=== PATIENT | female | born 1985 | race Hispanic/Latino ===

== ENCOUNTER 2018-08-28 16:19 | Emergency (ER) | payer SELFPAY ==
[2018-08-28 17:04] LABS: #Lymphocytes 0.8 thou/uL (1.20-3.40); #Monocytes 0.4 thou/uL (0.11-0.59); #Neutrophils 2.7 thou/uL (1.40-6.50); %Basophils 0.4 % (0.0-1.0); %Eosinophils 1.1 % (0.0-10.0); %Lymphocytes 20.8 % (21.0-51.0); %Monocytes 10.8 % (0.0-10.0); %Neutrophils 66.8 % (42.0-75.0); Mean Corpuscular HGB CONC 33.1 g/dL (32.0-36.0); Mean Corpuscular Volume 84.6 fL (78.0-98.0); Mean Platelet Volume 6.5 fL (7.4-10.4); Platelet Count 260 thou/uL (130-400); RBC Distribution Width 11.4 % (11.5-14.5); Red Blood Cell (RBC) Count 4.64 mill/uL (4.20-5.40)
[2018-08-28 17:23] LABS: ALT (SGPT) 115 U/L (8-55); AST (SGOT) 84 U/L (5-34); Albumin 4.3 g/dL (3.5-5.0); Alkaline Phosphatase 72 U/L (40-150); Anion Gap 10 mmol/L (10-20); BUN (Urea Nitrogen) 13 mg/dL (7.0-18.7); Bilirubin, Total 0.4 mg/dL (0.2-1.2); Calc. Creatinine Clearance 0 mL/min (70-130); Calcium 9.7 mg/dL (7.8-10.44); Carbon Dioxide 24 mmol/L (22-29); Chloride 105 mmol/L (98-107); Estimated GFR-MDRD Greater than 90; Globulin 3.8 g/dL (2.4-3.5); Glucose 99 mg/dL (70-105); Potassium 4.1 mmol/L (3.5-5.1); Protein, Total 8.1 g/dL (6.0-8.3); Sodium 135 mmol/L (136-145)
[2018-08-28] MEDS ORDERED: Ketorolac Tromethamine 60 MG/2 ML VIAL ONE (17:31)
[2018-08-28 17:36] LABS: Bilirubin Negative (Negative); Blood, Urine Negative (Negative); Clarity CLEAR (Clear); Glucose, Urine (Dipstick) Negative (Negative); Leukocyte Negative (Negative); Nitrite Negative (Negative); Protein, Urine (Dipstick) Negative (Neg-Trace); Specific Gravity, Urine 1.005 (1.002-1.036); Urobilinogen 0.2 mg/dL (0.2-1.0); pH, Urine 6.5 (5.0-9.0)
--- NOTE | 2018-08-28 17:39 | ULT ---
ULTRASOUND RETROPERITONEUM COMPLETE: (RENAL) 08/28/18 HISTORY: 33-year-old female with bilateral flank pain, left greater than right. FINDINGS: There is no hydronephrosis. Right kidney measures 10 x 5 x 5.5 cm. Left kidney measures 11 x 6.5 x 6 cm. Postvoid urinary bladder volume is 45 mL. Bladder has a grossly normal appearance. Bilateral ureteral jets are demonstrated. IMPRESSION: 1. Incomplete voiding, with postvoid residua of 45 mL. 2. No hydronephrosis. LISA Brody POS: JIN
[2018-08-28 17:43] LABS: Pregnancy Test - Urine (BHCG) Negative (Negative); Pregu Control Background? CLEAR/WHITE (CLR/WHITE); Pregu Control Bar Appear? YES (CONTROL BAR); Specific Gravity 1.005 (1.002-1.036)
[2018-08-28 18:39] LABS: HBCM Index 0.09 S/CO (0-0.79); HBSAg Index 0.33 S/CO (0-0.99); Hep A IgM AB Non-Reactive (NonReactive); Hep A IgM S/CO 0.25 S/CO (0-0.79); Hep B Surf Ag Non-Reactive S/CO (NonReactive); Hep C IgG Ab Non-Reactive (NonReactive); Hep C Index 0.06 S/CO (0-0.79); Hepatitis B Core IgM Abs Non-Reactive (NonReactive)
--- NOTE | 2018-08-28 18:44 | ULT ---
RIGHT UPPER QUADRANT ULTRASOUND 09/07/18 INDICATION: Increased liver enzymes. COMPARISON: Renal ultrasound dated 08/28/18. FINDINGS: The pancreas is obscured. No focal hepatic lesion is evident. Gallbladder is normal appearing. No son ographic Hernandez's sign is reported. Common bile duct measures 3.7 mm. The right kidney was evaluated on a previously performed renal ultrasound performed at 5:12 p.m. on 08/28/18. IMPRESSION: No acute sonographic abnormality. POS: JORDIN
== END 2018-08-28 20:20 | disposition home or self-care (01) ==
LOC: ERS 16:19
DX: R10.11 Right upper quadrant pain (principal); M54.9 Dorsalgia, unspecified
CPT/HCPCS: 36415; 76705; 76770; 80053; 80074; 81003; 81025; 83690; 85025; 96372; J1885

== ENCOUNTER 2018-12-25 17:59 | Inpatient (IN) | payer SELFPAY ==
[2018-12-25] MEDS ORDERED: Morphine 4 MG/ML VIAL ONE (18:36)
[2018-12-25] MEDS ORDERED: Ketorolac Tromethamine 30 MG/ML VIAL ONE (18:36)
[2018-12-25 19:00] LABS: Hemoglobin 15.4 g/dL (12.0-16.0); Mean Corpuscular HGB CONC 32.9 g/dL (32.0-36.0); Mean Corpuscular Hemoglobin 27.9 pg (27.0-31.0); Mean Corpuscular Volume 84.8 fL (78.0-98.0); Mean Platelet Volume 7.4 fL (7.4-10.4); Platelet Count 175 thou/uL (130-400); RBC Distribution Width 12.8 % (11.5-14.5); Red Blood Cell (RBC) Count 5.53 mill/uL (4.20-5.40); White Blood Cell (WBC) Count 17.9 thou/uL (4.8-10.8)
[2018-12-25 19:20] LABS: Band 58 % (5-11); Lymphocytes 3 % (21-51); MDiff Complete? YES; Metamyelocyte 1 % (0-0); Monocytes 1 % (0-10); Neutrophil 37 % (42-75); Platelet Morphology Comment Appears Adequate
[2018-12-25 19:25] LABS: ALT (SGPT) 644 U/L (8-55); AST (SGOT) 835 U/L (5-34); Albumin 3.2 g/dL (3.5-5.0); Alkaline Phosphatase 198 U/L (40-150); Anion Gap 20 mmol/L (10-20); BUN (Urea Nitrogen) 34 mg/dL (7.0-18.7); Bilirubin, Total 3.1 mg/dL (0.2-1.2); Calc. Creatinine Clearance 0 mL/min (70-130); Calcium 8.5 mg/dL (7.8-10.44); Carbon Dioxide 18 mmol/L (22-29); Chloride 98 mmol/L (98-107); Estimated GFR-MDRD 63; Glucose 192 mg/dL (70-105); Magnesium 2.1 mg/dL (1.6-2.6); Potassium 5.7 mmol/L (3.5-5.1); Protein, Total 7.2 g/dL (6.0-8.3); Sodium 130 mmol/L (136-145)
[2018-12-25 19:29] LABS: Acetaminophen Less than 6.0 mcg/mL (10.0-30.0); Alcohol Less than 10 mg/dL (Less than 10); CK (CPK) 74 U/L (29-168); Salicylate Less than 8.0 mg/dL (15.0-30.0)
--- NOTE | 2018-12-25 19:29 | CT ---
CT ANGIOGRAM THORAX WITH CONTRAST CT ANGIOGRAM ABDOMEN WITH CONTRAST: HISTORY: 33-year-old female with sudden onset of severe chest and abdominal pain and back pain, and weakness. Rule out aortic dissection. TECHNIQUE: IV injection of iodinated contrast. Arterial bolus chasing technique. Scan acquisition from top of aortic arch to iliac crests. Pelvis was not included. 3-D MIP reconstructions. FINDINGS: There is no thoracic aneurysm, dissection, or calcified atherosclerotic plaque. No stenosis. Bilatera l common iliac arteries, bilateral single renal arteries, celiac artery, and superior mesenteric artery, are also normal. Diffuse mild large regions of groundglass opacities throughout the bilateral lower lobes. No consolidation, pneumothorax, or pleural effusion. No mediastinal lymphadenopathy. Mild thickening of bilateral hilar soft tissues, nonspecific. Large number of mildly enlarged bilater al axillary and subpectoral lymph nodes. No pericardial effusion. No hydronephrosis. Within the limitations of an arterial phase only scan, no obvious gross abnormality is identified involving the adrenals, pancreas, liver, or spleen. No hydronephrosis bilaterally. Small focal defect at the lateral aspect of the right renal mid pole cortex, perhaps representing scar from prior insults. No e patrice in the perirenal spaces bilaterally. No acute findings of the visualized upper portions of the colon. Normal appendix. No small bowel dilation. No evidence of pneumoperitoneum or ascites within th e upper abdominal cavity. IMPRESSION: 1) normal aorta. 2) diffuse groundglass densities throughout the bilateral lower lobes. Uncertain whether this represe nts noncardiogenic pulmonary interstitial edema. 3) bilateral axillary lymphadenopathy. 4) evidence of small old cortical insult in the right kidney.
[2018-12-25 19:44] LABS: CKMB 1.5 ng/mL (0-6.6)
--- NOTE | 2018-12-25 19:44 | RAD ---
Exam: Chest one view HISTORY:Sepsis. Diaphoretic patient. Pain. Weakness. Comparison: None FINDINGS: Cardiac silhouette: Normal Pulmonary vessels: Normal Costophrenic angles: Clear LUNGS: No masses or consolidation. Scattered interstitial opacities. Pneumothorax: None Osseous abnormalities: None IMPRESSION: 1. Scattered interstitial opacities. Correlate for edema or infiltrate.
[2018-12-25 20:55] LABS: Bilirubin Negative (Negative); Blood, Urine Negative (Negative); Clarity Clear (Clear); Glucose, Urine (Dipstick) Normal (Negative); Leukocyte Negative Leu/uL (Negative); Nitrite Negative (Negative); Protein, Urine (Dipstick) 20 mg/dL (Neg-Trace); Urobilinogen 3 mg/dL (Less than 2)
[2018-12-25 21:00] LABS: Actual Bicarbonate (HCO3a) 18.5 mEq/L (22-28); Base Excess (BEa) -5.5 mEq/L (-2.0 to +3.0); CO2 Tension 32.1 mmHg (35.0-45.0); Carboxyhemoglobin (COHb) 0.6 gm% (0.0-3.0); Hemoglobin (Hb) 14.9 g/dL (12.0-16.0); O2 Tension (PaO2) 90.7 mmHg (80.0-100.0); pH, Arterial 7.38 (7.35-7.45)
[2018-12-25 21:01] LABS: Analyzer IN Cardio ER; Potassium - ABG Lab 4.14 mmol/L (3.70-5.30); Puncture Site RRA
[2018-12-25 21:08] LABS: Amphetamine Not Detected (NotDetected); Barbiturates Screen Not Detected (NotDetected); Benzodiazepine Screen Not Detected (NotDetected); Cocaine Metabolite Screen Not Detected (NotDetected); Medtox Control Line Valid? VALID (VALID); Medtox Reader # READER 1; Methadone Not Detected (NotDetected); Methamphetamine Not Detected (NotDetected); Opiate Screen Detected (NotDetected); Oxycodone Screen Not Detected (NotDetected); Phencyclidine (PCP) Not Detected (NotDetected); THC/Cannabinoid Screen Not Detected (NotDetected); Tricyclic Screen Not Detected (NotDetected)
[2018-12-25] MEDS ORDERED: Piperacillin/Tazobactam 4.5 GM VIAL ONE (21:17)
--- NOTE | 2018-12-25 21:43 | ULT ---
EXAM: US Gallbladder RUQ CLINICAL HISTORY: Elevated LFTs.. COMPARISON: 08/28/2018 FINDINGS: Pancreas: The head and proximal body have a normal echotexture. Liver:Appropriate parenchymal echotexture. No hepatic masses or intrahepatic biliary dilatation. The contour of the hepatic margin is maintained. Gallbladder: No sonographic evidence of cholelithiasis, gallbladder wall thickening or pericholecysti c fluid. Hernandez's sign:Negative Bile ducts: Common bile duct diameter 0.3 cm Right kidney: No hydronephrosis. Right kidney measures 11 cm cm in length. IMPRESSION: Unremarkable exam.
[2018-12-25 23:13] LABS: Lactic Acid 2.6 mmol/L (0.5-2.2)
[2018-12-25 23:22] LABS: Anion Gap 16 mmol/L (10-20); BUN (Urea Nitrogen) 28 mg/dL (7.0-18.7); Calc. Creatinine Clearance 0 mL/min (70-130); Calcium 7.5 mg/dL (7.8-10.44); Carbon Dioxide 20 mmol/L (22-29); Chloride 101 mmol/L (98-107); Estimated GFR-MDRD 82; Glucose 170 mg/dL (70-105); Potassium 4.6 mmol/L (3.5-5.1); Sodium 132 mmol/L (136-145)
[2018-12-25 23:39] LABS: HBCM Index 0.07 S/CO (0-0.79); HBSAg Index 0.27 S/CO (0-0.99); Hep A IgM AB Non-Reactive (NonReactive); Hep A IgM S/CO 0.35 S/CO (0-0.79); Hep B Surf Ag Non-Reactive S/CO (NonReactive); Hep C IgG Ab Non-Reactive (NonReactive); Hep C Index 0.06 S/CO (0-0.79); Hepatitis B Core IgM Abs Non-Reactive (NonReactive)
[2018-12-26] MEDS: Vancomycin HCl 1 GM in Premix Bag 1 BAG IVPB SCH ×3 (05:24→23:08)
[2018-12-26] MEDS ORDERED: traMADol HCl 50 MG TAB PO SCH (05:45)
[2018-12-26 06:53] LABS: ALT (SGPT) 575 U/L (8-55); AST (SGOT) 497 U/L (5-34); Albumin 2.7 g/dL (3.5-5.0); Alkaline Phosphatase 153 U/L (40-150); Anion Gap 12 mmol/L (10-20); BUN (Urea Nitrogen) 27 mg/dL (7.0-18.7); Bilirubin, Total 2.9 mg/dL (0.2-1.2); Calc. Creatinine Clearance 191 mL/min (70-130); Calcium 7.4 mg/dL (7.8-10.44); Carbon Dioxide 23 mmol/L (22-29); Chloride 100 mmol/L (98-107); Estimated GFR-MDRD Greater than 90; Globulin 3.1 g/dL (2.4-3.5); Glucose 121 mg/dL (70-105); Lipase 9 U/L (8-78); Potassium 4.6 mmol/L (3.5-5.1); Protein, Total 5.8 g/dL (6.0-8.3); Sodium 130 mmol/L (136-145)
[2018-12-26 08:06] LABS: #Basophils 0.1 thou/uL (0.0-0.2); #Lymphocytes 0.4 thou/uL (1.20-3.40); #Monocytes 0.2 thou/uL (0.11-0.59); #Neutrophils 9.8 thou/uL (1.40-6.50); %Basophils 0.8 % (0.0-1.0); %Eosinophils 0.4 % (0.0-10.0); %Lymphocytes 3.5 % (21.0-51.0); %Monocytes 1.5 % (0.0-10.0); %Neutrophils 93.7 % (42.0-75.0); Hemoglobin 14.7 g/dL (12.0-16.0); Mean Corpuscular HGB CONC 33.7 g/dL (32.0-36.0); Mean Corpuscular Hemoglobin 28.9 pg (27.0-31.0); Mean Corpuscular Volume 85.8 fL (78.0-98.0); Mean Platelet Volume 7.1 fL (7.4-10.4); Platelet Count 113 thou/uL (130-400); Platelet Morphology Comment Appears Decreased; RBC Distribution Width 12.8 % (11.5-14.5); White Blood Cell (WBC) Count 10.5 thou/uL (4.8-10.8)
[2018-12-26 08:09] LABS: MDiff Complete? YES
[2018-12-26] MEDS ORDERED: Acetaminophen 500 MG TAB PO SCH (08:45)
[2018-12-26] MEDS ORDERED: Sodium Chloride 0.9% 500 ML IVPB SCH (08:45)
[2018-12-26] MEDS ORDERED: Ibuprofen 100 MG/5 ML UDCUP PO PRN (08:54)
[2018-12-26] MEDS: Sodium Chloride 0.9% 1,000 ML IV SCH ×3 (09:05→21:07)
[2018-12-26] MEDS: Piperacillin/Tazobactam 4.5 GM in Sodium Chloride 0.9% 100 ML IVPB SCH ×3 (09:18→19:54)
[2018-12-26] MEDS: Enoxaparin Sodium 40 MG/0.4 ML SYRINGE SC SCH (09:19)
[2018-12-26] MEDS: Azithromycin 500 MG in Sodium Chloride 0.9% 250 ML 250 ML IVPB SCH (10:05)
[2018-12-26] MEDS ORDERED: Sodium Chloride 0.9% 1,000 ML IV SCH ×2 (10:45→12:15)
[2018-12-26 11:31] LABS: Legionella Urinary Ag Negative (Negative)
[2018-12-26] MEDS ORDERED: Acetaminophen 1,000 MG in Premix Bag 1 BAG IVPB SCH (11:45)
[2018-12-26 12:06] LABS: HIV (1/2) Antibody/Antigen Non-Reactive (NonReactive); HIV 1/2 INDEX 0.12 S/CO (<1.00)
[2018-12-26] MEDS: metroNIDAZOLE 500 MG in Premix Bag 1 BAG IVPB SCH ×2 (13:02→21:07)
--- NOTE | 2018-12-26 15:02 | CON ---
DATE OF CONSULTATION: HISTORY OF PRESENT ILLNESS: Nanette Pan is a very pleasant 33-year-old female, who has been having abdominal pain, she says for 3 to 4 days. She presented to the emergency department, subsequently admitted to the floor and then transferred to critical care unit. She has had no past similar illnesses. She told the emergency department people that she was having dysuria and back pain. She did tell me she had back pain, but says that is gone now. She says her abdomen was very tender last night, but it is much better today. PAST MEDICAL HISTORY: Otherwise, unremarkable. She has had a tubal ligation and . SOCIAL HISTORY: She is a nonsmoker, nondrinker, nondrug user. FAMILY HISTORY: Negative for lung disease in early age. REVIEW OF SYSTEMS: Ten point review of systems is otherwise negative. She denies gross hematuria. She has had no bright red blood per rectum. She has had no nausea or vomiting. PHYSICAL EXAMINATION: VITAL SIGNS: She is afebrile with temperature of 102 when she arrived in the critical care unit. She was tachycardic appropriately with temperature elevation. Blood pressure was around 100 systolic, respiratory rate is in the high 20s. HEENT: Pupils were equal. Sclerae are anicteric. NECK: Supple. LUNGS: Remarkably clear. HEART: Regular rhythm. No S3. No murmur. ABDOMEN: Soft and nontender even with deep palpation. She does have minimal tenderness in the right upper quadrant. EXTREMITIES: Without clubbing, cyanosis, or edema. NEUROLOGIC: Nonfocal. DIAGNOSTIC STUDIES: She had an aortic dissection CT. She has an increase in interstitial markings. There is no abdominal pathology identified. Abdominal ultrasound was nonrevealing at 8:30 last night. She has been started on broad antimicrobial therapy. Lab work was remarkable for significant elevation of the liver enzymes. Her white count last night was 17.9 with 58% bands. No manual differential was done on her peripheral smear today. Sodium 130, potassium 4.6, chloride 100, bicarb 23, BUN 27, creatinine 0.71, bilirubin is 2.9, AST is 497, ALT 575, alkaline phosphatase 153. When she came in, bilirubin was 3.1, AST 835, ALT 644, alkaline phosphatase 198. IMPRESSION: ? Cholangitis and/or cholecystitis. Clinical exam is not consistent with cholecystitis, but I would wonder if she does not have early sepsis from cholangitis with acute respiratory distress syndrome secondary to passing a stone. I have consulted Gastroenterology. She clinically appears to be improving. I agree that she should be in the Critical Care Unit. We will follow with the other physicians caring for. She should continue with broad antimicrobial therapy. Job ID: [id number]
[2018-12-26] MEDS ORDERED: traMADol HCl 50 MG TAB PO PRN (18:13)
[2018-12-26] MEDS: traMADol HCl 50 MG TAB PO PRN (19:50)
[2018-12-26 22:37] LABS: Vancomycin, Trough 5.1 ug/mL
[2018-12-26] MEDS: Vancomycin HCl 1.75 GM in Sodium Chloride 0.9% 500 ML IVPB SCH (23:03)
[2018-12-27] MEDS ORDERED: Sodium Chloride 0.9% 1,000 ML IV SCH (00:45)
[2018-12-27] MEDS ORDERED: Sodium Chloride 0.45% 1,000 ML IV SCH (00:45)
[2018-12-27] MEDS: Sodium Chloride 0.45% 1,000 ML IV SCH ×2 (00:48→06:41)
[2018-12-27] MEDS: traMADol HCl 50 MG TAB PO PRN ×3 (01:46→19:26)
[2018-12-27] MEDS: Piperacillin/Tazobactam 4.5 GM in Sodium Chloride 0.9% 100 ML IVPB SCH ×4 (02:03→20:58)
[2018-12-27 05:00] LABS: ALT (SGPT) 312 U/L (8-55); AST (SGOT) 177 U/L (5-34); Alkaline Phosphatase 118 U/L (40-150); Anion Gap 10 mmol/L (10-20); BUN (Urea Nitrogen) 15 mg/dL (7.0-18.7); Bilirubin, Total 2.4 mg/dL (0.2-1.2); Calc. Creatinine Clearance 248 mL/min (70-130); Calcium 6.1 mg/dL (7.8-10.44); Carbon Dioxide 18 mmol/L (22-29); Chloride 105 mmol/L (98-107); Estimated GFR-MDRD Greater than 90; Globulin 2.1 g/dL (2.4-3.5); Glucose 96 mg/dL (70-105); Potassium 3.9 mmol/L (3.5-5.1); Protein, Total 4.1 g/dL (6.0-8.3); Sodium 129 mmol/L (136-145)
[2018-12-27 05:02] LABS: #Lymphocytes 0.6 thou/uL (1.20-3.40); #Monocytes 0.3 thou/uL (0.11-0.59); #Neutrophils 4.8 thou/uL (1.40-6.50); %Basophils 0.1 % (0.0-1.0); %Lymphocytes 11.2 % (21.0-51.0); %Monocytes 4.8 % (0.0-10.0); %Neutrophils 83.8 % (42.0-75.0); Hemoglobin 12.9 g/dL (12.0-16.0); Mean Corpuscular HGB CONC 33.7 g/dL (32.0-36.0); Mean Corpuscular Hemoglobin 28.8 pg (27.0-31.0); Mean Corpuscular Volume 85.3 fL (78.0-98.0); Mean Platelet Volume 7.7 fL (7.4-10.4); Platelet Count 57 thou/uL (130-400); Platelet Morphology Comment Appears Decreased; RBC Distribution Width 12.9 % (11.5-14.5); Red Blood Cell (RBC) Count 4.47 mill/uL (4.20-5.40); White Blood Cell (WBC) Count 5.7 thou/uL (4.8-10.8)
[2018-12-27 05:09] LABS: HBCM Index 0.07 S/CO (0-0.79); Hep A IgM AB Non-Reactive (NonReactive); Hep A IgM S/CO 0.39 S/CO (0-0.79); Hep B Surf Ag Non-Reactive S/CO (NonReactive); Hep C IgG Ab Non-Reactive (NonReactive); Hep C Index 0.05 S/CO (0-0.79); Hepatitis B Core IgM Abs Non-Reactive (NonReactive)
[2018-12-27] MEDS: metroNIDAZOLE 500 MG in Premix Bag 1 BAG IVPB SCH ×3 (05:18→21:54)
[2018-12-27 07:57] LABS: Fibrinogen 176 mg/dL (253-463)
[2018-12-27 07:58] LABS: INR-International Normal Ratio 1.5; PTT 40.8 SEC (22.9-36.1); Prothrombin Time 17.7 SEC (12.0-14.7)
[2018-12-27] MEDS: Vancomycin HCl 1.75 GM in Sodium Chloride 0.9% 500 ML IVPB SCH ×2 (08:06→16:06)
[2018-12-27] MEDS: Enoxaparin Sodium 40 MG/0.4 ML SYRINGE SC SCH (08:08)
[2018-12-27 08:14] LABS: D-Dimer Test Greater than 20.00 *mcg/mL (0.27-0.43)
--- NOTE | 2018-12-27 08:28 | HP ---
CHIEF COMPLAINT: Pain all over her body and fever. HISTORY OF PRESENT ILLNESS: The patient is a 33-year-old female, who is admitted to the hospital with acute onset of fever and pain all over her body. Apparently, she was quite well until yesterday when she started having fever and pain all over her body, especially in her knees and her abdomen. She noticed some dysuria and some shortness of breath. There was no cough. She was diagnosed with some kind of arthritis and sent to [facility] in [place] recently by her primary doctor, Dr. Hdez. So, the primary doctor is Dr. Hdez. Surrogate decision maker is the patient's , Jonathan Perez. PAST MEDICAL HISTORY: None. PAST SURGICAL HISTORY: section and tubal ligation. SOCIAL HISTORY: She denies any alcohol use, cigarette smoking, or any illicit drug use. FAMILY HISTORY: Positive for cardiovascular disease. ALLERGIES: NONE. CURRENT MEDICATIONS: Ibuprofen. REVIEW OF SYSTEMS: Positive for fever, weakness, and body aches. Negative for chest pain or palpitations. Negative for nasal congestion and epistaxis. Negative for cough. Some shortness of breath. Negative for nausea and vomiting. Positive for dysuria. Positive for back pain, muscle aches, and joint aches. Negative for rash or erythema. Negative for easy bruising and clotting abnormalities. PHYSICAL EXAMINATION: VITAL SIGNS: Blood pressure is 87/52, pulse is 130, temperature is 100.8, respiratory rate is 24. HEENT: Head is atraumatic and normocephalic. She looks flushed and sick. Eyes, conjunctivae are reddish bilaterally. Sclerae nonicteric. Oral mucosa is somewhat dry. NECK: Supple. LUNGS: Scattered rales at both bases. No wheezing. HEART: S1 and S2. Tachycardic. ABDOMEN: Soft, but tender all over. No guarding. No masses. EXTREMITIES: No clubbing, cyanosis, or edema. NEUROLOGICAL: She follows my commands. She is a Citizen Of [place] only speaking patient. She moves her all 4 extremities. LABORATORY DATA: White count of 17.9, hemoglobin 15.4, hematocrit 46.9, platelet count is 175,000, 58% of bands. ABGs showed pH of 7.38, pCO2 of 32.1, pO2 of 90.7. Sodium of 130, potassium 4.6, chloride 100, CO2 of 23, BUN 27, creatinine 0.71, glucose 121, calcium 7.4. Last lactic acid, first one was 4.2, then 2.6. We will obtain another one. AST 497, ALT 575, alkaline phosphatase 153. Serum total protein 5.8, albumin 2.7. C-reactive protein 14.06. Urine showed specific gravity 1.061 and 3+ urobilinogen, otherwise negative. Urine drug screen positive for opioids. Hepatitis A, B, and C acute, nonreactive. IMAGING STUDIES: 1. Chest x-ray showed bilateral increased opacification in both lower lobes, suspicious for some significant process. 2. CT dissection of aorta negative, but showed bilateral axillary lymphadenopathy. 3. Abdominal ultrasound showed unremarkable exam. IMPRESSION AND PLAN: Severe sepsis with hypotension and shock. The patient was originally admitted to the medical floor, but she is hypotensive and tachycardic. We are moving her to critical care as we speak with IV fluid bolus. She is on vancomycin. We are going to add Zosyn. She had Zosyn done last night, one dose. We will give her more IV fluids, normal saline as needed plus a constant rate at mL/h. We will use ibuprofen p.r.n. We will get a Pulmonary/Critical Care consult with Dr. Butterfield. We will do ibuprofen for her fever. Supportive care. DVT prophylaxis with SCDs and the Lovenox, and serial labs. Job ID: [id number]
[2018-12-27 08:33] LABS: FSP-Qualitative ABNORMAL (Normal); FSP-Semiquantitative >=160 & <320 mcg/mL (Less than 5)
[2018-12-27 08:35] LABS: Platelet Count 51 thou/uL (130-400)
[2018-12-27] MEDS: Sodium Chloride 0.9% 1,000 ML IV SCH ×2 (09:30→18:44)
[2018-12-27] MEDS ORDERED: methylPREDNISolone Sod Succ 40 MG VIAL IVP SCH (09:45)
--- NOTE | 2018-12-27 10:00 | PRG ---
DATE OF SERVICE: 12/27/2018 Cortisol level was ordered this morning because of her hyponatremia, abdominal pain, and hypotension. Cortisol is less than 1. This is adrenal crisis. I do not think that explains her fever unless there is an infectious etiology of her adrenal crisis. We will start her on Medrol at this point in time. At a later date, she can be switched to Decadron and have an ACTH stimulation test. Critical care time is 35 minutes. Job ID: [id number] MTDD
--- NOTE | 2018-12-27 10:23 | PRG ---
DATE OF SERVICE: 12/27/2018 SUBJECTIVE: Nanette Pan says she feels better. She looks little better, but she still reports abdominal discomfort. Her temperature is trending down. Her last temperature yesterday morning at 10 a.m. OBJECTIVE: GENERAL: She is in no distress. VITAL SIGNS: Stable. Heart rate is 84, respiratory rate is 15, oximetry is 99, blood pressure is 96/56. LUNGS: Clear. HEART: Regular rate and rhythm. ABDOMEN: web machine tender, more on the right than on the left. EXTREMITIES: Without clubbing, cyanosis, or edema. LABORATORY DATA: Platelets are 51,000, white count 5.7, hemoglobin 12.9, platelets 57,000 earlier. Manual differential was not again done. IMPRESSION AND PLAN: Abdominal pain with fever with no CT or ultrasound findings. She did have a significant hepatic enzymitis with hyperbilirubinemia that is improving. It makes me wonder whether or not she passed a stone. I suppose she could have had just acute viral hepatitis. Her HIV was negative. Her hepatitis panel was negative. I have asked General Surgery to see her as well as Gastroenterology just for another opinion. CRITICAL CARE TIME: 30 minutes. Job ID: [id number]
[2018-12-27] MEDS: Azithromycin 500 MG in Sodium Chloride 0.9% 250 ML 250 ML IVPB SCH (10:29)
[2018-12-27 11:07] LABS: Band 37 % (5-11); Lymphocytes 8 % (21-51); MDiff Complete? YES; Monocytes 2 % (0-10); Neutrophil 53 % (42-75)
[2018-12-27 11:08] LABS: RBC Morphology Normal
[2018-12-27] MEDS ORDERED: Hydrocortisone Sod Succ/PF 100 mg/2 ml Vial IVP SCH (11:45)
[2018-12-27] MEDS ORDERED: Thiamine HCl 200 MG/2 ML VIAL SLOW IVP SCH (13:15)
--- NOTE | 2018-12-27 14:06 | CON ---
DATE OF CONSULTATION: 12/26/2018 REASON FOR CONSULTATION: Abdominal pain, abnormal LFTs, hypotension, and fever. HISTORY OF PRESENT ILLNESS: Nanette Pan is a very pleasant 33-year-old female hospitalized because of fever, hypotension, and sepsis. She was in medical floor, subsequently transferred to ICU because of hypotension etc. The patient does not speak [place]. I was ayana enough talked to talk to the family. The speaks little Bhutanese, but her daughter is able to speak Bhutanese. Most of the history was obtained talking to her daughter. The patient came to the ER because of abdominal pain, which is over the hypogastric area and also some dysuria. She has also some back pain. The patient has been having fever over the last couple of days. She had an abdominal sonogram in the ER, which was negative for any pathology. She also had a chest x-ray, shows bilateral interstitial infiltrates. Liver function tests are elevated. The patient was seen in this ER in August of 2018 because of some left flank pain and also some generalized body pain. She had an abdominal sonogram, which was negative. The liver function tests were slightly high. The AST and ALT were slightly high. Now, the numbers are really much more. The patient has no prior history of alcohol abuse. No history of drug use. No history of any hepatitis in the past. There is no family history of hepatitis. The patient did see Dr. Seema Hdez. The tells me his has had some body pains and different symptoms off and on, and has not been feeling very good over the last at least 2 or 3 months. However, as per the ER visit in August of 2018, she actually came with some flank pain and generalized body pain. At that time, the evaluation was negative including abdominal sonogram. At that time, the pain was most likely musculoskeletal pain . she had done reasonably well until probably about 3 to 4 days ago when started having abdominal pain, back pain, and also some dysuria. She had no hematuria. The patient had a workup in the ER, which including a CT angiogram which was negative. The patient was transferred to ICU because of hypotension and sepsis and her blood pressure was up to 90/50. The patient appears comfortable, she states she is feeling better. She has no relevant history. ALLERGIES: NONE. SOCIAL HISTORY: The patient is . Does not smoke or drink alcohol. PAST SURGICAL HISTORY: and tubal ligation. MEDICAL ILLNESSES: None. FAMILY HISTORY: No family history any malignancy or any liver disease etc. REVIEW OF SYSTEMS: A 10-point system review: CONSTITUTIONAL: History of fever, generalized body pain, poor appetite over the last several days. CASH ACCOUNTANT: No history of seizure disorder. No history of chronic headache. No syncope. RESPIRATORY: She has a history of cough, which is dry. No expectoration. No dyspnea. No hemoptysis. CARDIOVASCULAR: Nothing relevant, GI: Abdominal pain, which is predominantly over lower abdomen and has some back pain. She also has some frequent urination, dysuria. MUSCULOSKELETAL: Generalized body pains and fatigue. NEUROPSYCHIATRIC. Not relevant. HEMATOLOGIC: Not relevant. ENDOCRINE: Not relevant. PHYSICAL EXAMINATION: GENERAL: The patient appears very comfortable. She is obese. She is in no distress. VITAL SIGNS: Afebrile today, but she was having 102 fever yesterday. Her pulse is around 90, blood pressure was around 90/57 respiratory rate is around 20. HEENT: Conjunctivae clear. NECK: Supple. No adenitis or thyromegaly noted. CARDIOVASCULAR: First and second heart sounds are normal. LUNGS: Clear to auscultation. ABDOMEN: Very soft, but she is mildly tender all over. Wherever she is touched , she says it hurts. Abdomen it really benign. There are no organomegaly or masses. Bowel sounds are normal. EXTREMITIES: Reveal no edema. CENTRAL NERVOUS SYSTEM: Grossly within normal limits. LABORATORY DATA: WBC count of 10,500, hemoglobin 14.7, hematocrit 43.7, MCV 85.8, platelet count is 113,000, [id number] lymphocytes 3, however she had bandemia of 58% yesterday. Chem-7 shows potassium 5.7, chloride 98, BUN is 34, creatinine is 1.02, glucose 192, calcium 8.5, bilirubin 3.1, AST 835 which was 84 three months ago, ALT is 644 which was 115 three months ago, alkaline phosphatase is 198. Albumin 3.2. Chest x-ray shows bilateral interstitial opacities. The abdominal sonogram negative for any gallstones. The urinalysis is basically negative, showed 3+ urobilinogen. IMPRESSION: A 33-year-old female with vague abdominal pain, back pain, fever. She had a fever of 102 yesterday. Today, she is afebrile. She is on multiple antibiotics of Zosyn, vancomycin, and also Flagyl was added by Dr. Butterfield this morning. The patient was here 3 months ago with some flank pain, at the time abdominal sonogram was negative. She had no gallstones. She was found to have mild elevated LFTs at that time. _The patient is definitely septic and the sepsis etiology is unclear. She does have bilateral lung infiltrates_.She had 58%bandemia yesterday, but there is no bandemia today. She had a mild left shift. The patient most likely has more of a respiratory infection with possibly some respiratory decompensation. Liver function tests are elevated and most likely may be because of some shock liver and possibly autoimmune hepatitis etc. I do not believe that she has cholangitis and she has no gallstones even 3 months ago. She has also a benign abdomen. RECOMMENDATIONS: 1. Obtain hepatitis markers. 2. Obtain MARIUSZ. 3. Continue IV antibiotics and IV fluids. Further recommendations depending upon the lab results. Job ID: [id number] [facility]
[2018-12-27] MEDS: methylPREDNISolone Sod Succ 40 MG VIAL IVP SCH ×2 (14:14→21:55)
[2018-12-27 14:24] LABS: INR-International Normal Ratio 1.4
[2018-12-27 14:25] LABS: PTT 38.5 SEC (22.9-36.1)
[2018-12-27 14:35] LABS: Complement-C4 20.2 mg/dL (15-57)
--- NOTE | 2018-12-27 15:14 | PRG ---
DATE OF SERVICE: 12/27/2018 SUBJECTIVE: Overnight, her blood pressure was running on the lower side. She was given some IV boluses. She states that she feels somewhat better. She still has quite a bit of abdominal pain, but it has somewhat improved. No nausea. No vomiting. No diarrhea. OBJECTIVE: VITAL SIGNS: Blood pressure is 97/61, pulse is 97, respiratory rate is 13, and O2 saturation 99%. HEENT: Her sclerae are nonicteric. Conjunctivae are pinkish. Oral mucosa is moist. NECK: Supple. LUNGS: Diminished breath sounds at both bases. HEART: S1 and S2 normal. No S3. No S4. ABDOMEN: Soft. Tender on deeper palpation in a nonlocalized fashion. Diffuse pain. No guarding. No masses. EXTREMITIES: No clubbing, cyanosis, or edema. NEUROLOGIC: She follows my commands. She moves all 4 extremities. There are no any motor or sensory deficits. LABORATORY DATA: Labs showed white count of 5.7, hemoglobin of 12.9, hematocrit 38.1, platelet count is 57 yesterday. PT 17.7, INR 1.5, and aPTT 40.8. Fibrinogen 176, which is low. Fibrin degradation product abnormal, quantification high. D-dimer is more than 20. More tests are pending. Sodium is 129, potassium 3.9, chloride 105, CO2 is 18, BUN 15, creatinine 0.56, calcium 6.1, total bilirubin 2.4, AST 177, ALT 312, albumin 2.0, globulin 2.1. Cortisol less than 1. Complement C3 of 56 and complement C4 of 20.2, which is normal. Hepatitis panel nonreactive. HIV-1 and 2 antigen and antibodies nonreactive. Her urine for Legionella pneumophila negative. IMPRESSION: 1. Sepsis, unclear source. Her blood cultures negative. Urine culture negative. 2. Disseminated intravascular coagulation related to #1. 3. Abdominal pain and elevated LFTs. They are improving daily. General surgeon was asked to come and see the patient to evaluate her biliary abnormalities related to infection. 4. Hyponatremia. The patient received a lot of IV fluids, most likely this is the source. 5. Hypocalcemia, partially related to her hypoalbuminemia, which is 2.0. 6. Adrenal crisis. Her cortisol was less than 1. This is most likely related to severe sepsis. We will obtain a procalcitonin level and she was started on IV steroids already by supervisor finishing/human resources benefits specialist. Infectious disease consult was placed and the case was discussed with Dr. Gamez. Job ID: [id number]
--- NOTE | 2018-12-27 19:03 | CON ---
DATE OF CONSULTATION: 12/27/2018 REASON FOR CONSULTATION: Febrile illness with thrombocytopenia, skin rash, and polyarthralgias. HISTORY OF PRESENT ILLNESS: A 33-year-old, who was in her usual state of health without any major past medical history until August of this year when she was evaluated at the emergency room because of diffuse body aches. At that time, her white cell count was 4000 and platelet count was 260,000. She had a sodium of 139, carbon dioxide 24, creatinine was 0.72, the AST was 84, ALT was 115, alkaline phosphatase 72, bilirubin was 0.4, albumin was 4.3, and urinalysis with a negative protein. The patient was given ibuprofen and released. After that, remained with recurrent myalgias, for which she took anti-inflammatories with limited improvement and she felt as if her health was declining. She felt more and more difficulty in performing her activities of daily living. Eventually, had to be admitted with this worsening arthralgias, myalgias, and she developed then fever and general malaise. She has a little bit of dysuria. Some headaches, she rates at 6/10. No sore throat, odynophagia, or dysphagia. No dental pain. No back pain. No cough. No dyspnea. No neurological symptoms. She has developed this pruritic eruption in the facial skin area. PAST MEDICAL HISTORY: Negative before this August illness. PAST SURGICAL HISTORY: and tubal ligation. PERSONAL HISTORY: She has five children, lives in the area. She is . SOCIAL HISTORY: Does not smoke. No alcoholic beverage use or illicit drug use. FAMILY HISTORY: Coronary artery disease. ALLERGIES: NONE. MEDICATIONS: Had been taking ibuprofen. Currently, she is on; 1. Ascorbic acid. 2. Azithromycin. 3. Metronidazole. 4. Zosyn. 5. Tramadol. 6. Vancomycin. PHYSICAL EXAMINATION: VITAL SIGNS: T-max 102.4, BP 97/61, heart rate 97, and O2 saturation 99 on room air. SKIN: Shows diffuse facial erythroderma, pruritic. She has a peripheral IV access and is voiding with an indwelling catheter. HEENT: Scleral are mildly hyperemic. Pupils are equal. Conjunctivae normal. Oral cavity normal. Teeth in very good shape. NECK: Supple. No jugular vein distention. LUNGS: Symmetric breath sounds. HEART: S1 and S2. Regular rate. No wheezing. ABDOMEN: Soft with diffuse vvzz-cv-fiuisngd tenderness. No bladder distention. EXTREMITIES: She has pain in multiple joints in a very symmetric distribution with limitation of range of motion and evidence of synovitis. Pulses are 2+ in dorsalis pedis. 1+ edema in lower extremities. She moves her extremities equally with limitations because of joint pain. She has pain on the thighs and upper extremity arm muscles. NEUROLOGIC: Cognitive function appears to be intact. Neuro examination nonfocal. LABORATORY DATA: Recent labs; white cell count 5.7, hemoglobin 12.9, and platelets down to of 51,000 with 85% neutrophils and 37% bands. The pathology review showed normal morphology of red cells. INR was 1.5 and PTT 40.8. A pH of 7.38, pCO2 of 32, and pO2 of 90.7. Sodium 129, creatinine 0.56, AST was 497 down to 177, creatine kinase was 74 and urinalysis, 20 protein. Complement C3 was low at 56 and C4 was 20. The patient had a cortisol screen, which was less than 1 this morning. Two sets of blood cultures thus far negative. CT dissection are not remarkable except for lymph nodes, lymphadenopathy there is. Chest x-ray with scattered interstitial opacities. ASSESSMENT: Young female, otherwise healthy, who has had polyarthralgias since August this year with evidence of polyarthritis, worsening thrombocytopenia, fever, skin erythroderma in the facial area, lymphadenopathy, evidence of hepatitis and coagulopathy with evidence of moderate disseminated intravascular coagulation. She also has hypocomplementemia as identified today. DISCUSSION: Differential diagnosis includes systemic lupus erythematosus with antiphospholipid antibody syndrome. She may have adrenalitis associated with autoimmune manifestations of lupus, which can cause acquired acute adrenal insufficiency. She does not have overt evidence of nephritis at this time. She may have a pneumonitis and probably has autoimmune hepatitis. An infectious syndrome is less likely, this illness is too chronic for Ehrlichia, Rickettsia, or Bartonella infection. Chronic infections including fungal or mycobacterial infections are less likely. ITP, TTP, and so on are less likely, the hepatitis and HIV serology were negative. She has been started on corticosteroids which should lead to rapid improvement. We will wait for the remainder of her serologies. Job ID: [id number] [facility]
--- NOTE | 2018-12-27 20:46 | PRG ---
DATE OF SERVICE: 12/27/2018 SUBJECTIVE: This is a 33-year-old female, hospitalized with abdominal pain, abnormal LFTs, fever etc. The patient has bilateral lung infiltrates. She has had negative sonogram during this admission, already had a sonogram 3 months ago. The patient's hepatitis markers are negative. The MARIUSZ etiology is pending. Her liver function test is slightly getting better. Bilirubin is down to 2.4, AST down to 177, ALT was 312, alkaline phosphatase is 118. Her blood cultures are negative. The patient was seen by Dr. Gamez for ID consult. I agree with her impression of possibly autoimmune disease causing the problem. She was here in August of 2018, in the ER and had an elevated LFT. There is no further followup done on the LFTs. Also, she has serum cortisol, which is very low. She is on IV steroids. PHYSICAL EXAMINATION: GENERAL: Appears comfortable, pulse is 99, blood pressure is 94/56. CARDIOVASCULAR AND LUNGS: Within normal limits. ABDOMEN: Soft. Nondistended. Abdomen is mildly tender all over. There is no rebound or guarding. IMPRESSION: 1. Abnormal LFTs, possibly represent autoimmune hepatitis. There is a possibility of autoimmune disease like lupus. 2. Hypocortisolism. Serum cortisol of 1. She is on IV steroids. RECOMMENDATIONS: Continue steroids. Follow up LFTs and await MARIUSZ test etc. Job ID: [id number]
[2018-12-27 23:27] LABS: Vancomycin, Trough 8.1 ug/mL
[2018-12-28] MEDS: Piperacillin/Tazobactam 4.5 GM in Sodium Chloride 0.9% 100 ML IVPB SCH ×3 (03:16→15:10)
[2018-12-28] MEDS: Sodium Chloride 0.9% 1,000 ML IV SCH ×2 (03:16→19:14)
[2018-12-28 03:42] LABS: ALT (SGPT) 249 U/L (8-55); AST (SGOT) 112 U/L (5-34); Albumin 2.1 g/dL (3.5-5.0); Alkaline Phosphatase 164 U/L (40-150); Anion Gap 10 mmol/L (10-20); BUN (Urea Nitrogen) 10 mg/dL (7.0-18.7); Bilirubin, Total 3.3 mg/dL (0.2-1.2); Calc. Creatinine Clearance 272 mL/min (70-130); Carbon Dioxide 20 mmol/L (22-29); Chloride 106 mmol/L (98-107); Estimated GFR-MDRD Greater than 90; Globulin 2.2 g/dL (2.4-3.5); Glucose 190 mg/dL (70-105); Potassium 3.4 mmol/L (3.5-5.1); Protein, Total 4.3 g/dL (6.0-8.3); Sodium 133 mmol/L (136-145)
[2018-12-28 03:56] LABS: Hemoglobin 12.8 g/dL (12.0-16.0); Mean Corpuscular HGB CONC 33.9 g/dL (32.0-36.0); Mean Corpuscular Hemoglobin 28.9 pg (27.0-31.0); Mean Corpuscular Volume 85.2 fL (78.0-98.0); Mean Platelet Volume 8.1 fL (7.4-10.4); Platelet Count 45 thou/uL (130-400); RBC Distribution Width 13.1 % (11.5-14.5); Red Blood Cell (RBC) Count 4.44 mill/uL (4.20-5.40); White Blood Cell (WBC) Count 5.3 thou/uL (4.8-10.8)
[2018-12-28 04:37] LABS: Band 23 % (5-11); Lymphocytes 10 % (21-51); MDiff Complete? YES; Monocytes 11 % (0-10); Neutrophil 56 % (42-75); Platelet Morphology Comment Appears Decreased
[2018-12-28] MEDS: metroNIDAZOLE 500 MG in Premix Bag 1 BAG IVPB SCH (05:53)
[2018-12-28] MEDS: methylPREDNISolone Sod Succ 40 MG VIAL IVP SCH ×3 (05:53→21:07)
[2018-12-28] MEDS: traMADol HCl 50 MG TAB PO PRN ×2 (07:15)
[2018-12-28] MEDS ORDERED: Potassium Chloride 20 MEQ TAB PO SCH (09:30)
--- NOTE | 2018-12-28 11:02 | PRG ---
DATE OF SERVICE: 12/28/2018 SUBJECTIVE: This is a 33-year-old female hospitalized with hypotension, shock, sepsis, and also abnormal LFTs. Her serum cortisol level was very low at 1 mg. She is on IV steroids. She is making slow, but steady progress. She appears more comfortable and more awake and alert. The patient denied abdominal pain. There is no nausea, no vomiting. She had a good breakfast this morning and able to keep it down. OBJECTIVE: GENERAL: Appears comfortable. She is awake, alert, and communicative. VITAL SIGNS: Afebrile, pulse 90, blood pressure is 106/60. HEENT: She is icteric. CARDIOVASCULAR SYSTEM: Within normal limits. LUNGS: Within normal limits. ABDOMEN: Soft. Abdomen is nontender today. No organomegaly. LABORATORY DATA: From today shows WBC dropping to 5300, hemoglobin 12.8, hematocrit 37.8, platelet count is low at 45,000, eventually dropping down. Chemistry panel shows chem-7 normal except for mild hypokalemia at 3.4, BUN is 10, creatinine is 0.51, her calcium is 7, bilirubin 3.3, AST 112, ALT 249, alkaline phosphatase is 164, albumin 2.1. IMPRESSION: 1. Abnormal LFTs most likely autoimmune hepatitis. 2. Sepsis with negative blood cultures. 3. Thrombocytopenia possibly related to autoimmune disease. RECOMMENDATION: 1. We will await those MARIUSZ report. 2. Continue IV steroids. 3. Supportive care. Job ID: [id number]
--- NOTE | 2018-12-28 11:35 | PRG ---
DATE OF SERVICE: 12/28/2018 SUBJECTIVE: Nanette Pan says she feels 100% better today. OBJECTIVE: VITAL SIGNS: She has had no fever. Heart rate is 100, respiratory rate is 18, oximetry is 99% on room air, and blood pressure is 102/62. LUNGS: Clear. HEART: Regular rhythm. ABDOMEN: No longer tender. EXTREMITIES: Without asymmetry. ASSESSMENT AND PLAN: Gastroenterology feels that she may have an autoimmune hepatitis. An MARIUSZ was sent. I suppose this actually could be a lupus flare and that would explain her fever. The incidental finding is adrenal insufficiency. Continue supportive care. She could be transferred out of the critical care unit. Her CBC is normal today. Her electrolytes are unremarkable. Liver enzymes are still mildly elevated, but they continue to improve. She did have a low C3 and normal C4 MARIUSZ is pending. We will follow. Job ID: [id number]
[2018-12-28 12:55] LABS: Cardiolipin IgA Ab 3.7 APL-U/mL (<14 Negative); EliA APS New Method **** NEW METHOD ****; beta-2-Glycoprotein I IgA Ab 3.6 U/mL (<7 Negative); beta-2-Glycoprotein I IgG Ab 0.9 U/mL (<7 Negative); beta-2-Glycoprotein I IgM Abs Less than 2.9 U/mL (<7 Negative)
--- NOTE | 2018-12-28 15:18 | PRG ---
DATE OF SERVICE: 12/28/2018 SUBJECTIVE: The patient is seen and examined at bedside. She seems to be doing better. Her blood pressure is holding up pretty good. She is not tachycardic anymore. OBJECTIVE: VITAL SIGNS: Blood pressure is 129/75, pulse is 89, respirations 19, O2 saturation is 99% on room air. HEENT: Her skin is somewhat flushed. Conjunctivae pinkish. NECK: Supple. Oral mucosa is moist. LUNGS: Breath sounds somewhat diminished at both bases. No wheezing. No rales. HEART: S1 and S2 normal. No S3. No S4. ABDOMEN: Soft, obese, nontender. EXTREMITIES: No clubbing, cyanosis, or edema. NEUROLOGICAL: She follows my commands. She moves all 4 extremities. LABORATORY DATA: Normal white count, normal hemoglobin and hematocrit, platelet count is down to 45. Sodium of 133, potassium 3.4, chloride 106, CO2 of 20, BUN 10, creatinine 0.51, glucose 190, calcium 7.0, total bilirubin 3.3, calcium 7.0, AST 112, ALT 249, alkaline phosphatase 164, total protein 4.3, albumin 2.1, and globulin 2.2. ACTH 1.2, which is low. Vancomycin trough 8.1. Antiphospholipid antibodies panel negative. Complement C3 is 56 which is low and complement C4 is 20.20, normal. Normal hepatitis panel. Microbiology; urine, no growth. Blood cultures, no growth. IMPRESSION: Most likely lupus with low complement C3, likely autoimmune hepatitis and adrenalitis. The patient improved significantly on steroids. She was seen by Infectious Disease, Dr. Gamez, who puts infectious etiology further down the list. Antiphospholipid antibodies came back negative. Normal white count today, and she will be moved out from the unit and continued to be watched and managed on the floor. We will continue the current regimen. Job ID: [id number]
[2018-12-28 15:29] LABS: ANA Symphony (Qualitative) POSITIVE (Negative); CENP IgG Antibody Less than 0.4 EliAU/mL (<7 Negative); Jo-1 IgG Antibody Less than 0.3 EliAU/mL (<7 Negative); SSB/La IgG Antibody Less than 0.3 EliAU/mL (<7 Negative); Scleroderma-70 IgG Antibody 0.7 EliAU/mL (<7 Negative); Smith D IgG Antibody 1.1 EliAU/mL (<7 Negative); dsDNA IgG Antibody 1.8 IU/mL (<10 Negative)
[2018-12-29] MEDS: Sodium Chloride 0.9% 1,000 ML IV SCH ×2 (00:24→14:41)
[2018-12-29] MEDS: methylPREDNISolone Sod Succ 40 MG VIAL IVP SCH ×3 (05:03→20:35)
[2018-12-29] MEDS: traMADol HCl 50 MG TAB PO PRN (05:59)
[2018-12-29 06:19] LABS: Band 12 % (5-11); Lymphocytes 8 % (21-51); MDiff Complete? YES; Mean Corpuscular HGB CONC 32.6 g/dL (32.0-36.0); Mean Corpuscular Hemoglobin 27.7 pg (27.0-31.0); Mean Corpuscular Volume 84.9 fL (78.0-98.0); Mean Platelet Volume 8.8 fL (7.4-10.4); Monocytes 11 % (0-10); Neutrophil 66 % (42-75); Platelet Count 58 thou/uL (130-400); Platelet Morphology Comment Appears Decreased; RBC Distribution Width 13.4 % (11.5-14.5); Reactive Lymphocytes 3 % (0-10); Red Blood Cell (RBC) Count 4.34 mill/uL (4.20-5.40); White Blood Cell (WBC) Count 8.4 thou/uL (4.8-10.8)
[2018-12-29 06:26] LABS: ALT (SGPT) 366 U/L (8-55); AST (SGOT) 399 U/L (5-34); Albumin 2.1 g/dL (3.5-5.0); Alkaline Phosphatase 180 U/L (40-150); Anion Gap 7 mmol/L (10-20); BUN (Urea Nitrogen) 11 mg/dL (7.0-18.7); Bilirubin, Total 2.8 mg/dL (0.2-1.2); Calc. Creatinine Clearance 296 mL/min (70-130); Calcium 6.9 mg/dL (7.8-10.44); Carbon Dioxide 25 mmol/L (22-29); Chloride 105 mmol/L (98-107); Estimated GFR-MDRD Greater than 90; Glucose 137 mg/dL (70-105); Potassium 3.8 mmol/L (3.5-5.1); Protein, Total 4.1 g/dL (6.0-8.3); Sodium 133 mmol/L (136-145)
[2018-12-29 13:13] LABS: Cytoplasmic (C-ANCA) <1:20 titer (Neg:<1:20); Perinuclear (P-ANCA) <1:20 titer (Neg:<1:20)
--- NOTE | 2018-12-29 14:59 | PRG ---
DATE OF SERVICE: 12/29/2018 SUBJECTIVE: The patient is seen and examined at the bedside. She seems to be doing daily improvements. OBJECTIVE: VITAL SIGNS: Her blood pressure is 113/77, pulse is 94, respiratory rate is 16, O2 saturation is 100%, and her temperature is 98.1. HEENT: Head is atraumatic and normocephalic. Eyes are PERRLA. Sclerae are nonicteric. Oral mucosa is moist. NECK: Supple, somewhat obese. LUNGS: Breath sounds slightly diminished at both bases. No rales. No wheezing. HEART: S1 and S2 normal. No S3. No S4. ABDOMEN: Soft, obese, and nontender. EXTREMITIES: No clubbing, cyanosis, or edema. NEUROLOGIC: She is alert and oriented x4. There are no any motor or sensory deficits present. Cranial nerves are intact. LABORATORY DATA: Labs showed normal CBC except for thrombocytopenia, which is 58, yesterday was 45 and 12 bands. Sodium of 132, potassium 3.8, chloride 105, CO2 of 25, BUN 11, creatinine 0.48, glucose 137, calcium 6.9. Total bilirubin 2.8, AST 399, ALT 266, alkaline phosphatase 180, lactate dehydrogenase 770, total protein 4.1. TSH is 0.175, DHEA is 44.1. MARIUSZ screen positive, qualitative positive, quantitative 30. IgG antibody Jossy-1 less than 0.03, SSA which is SSB ([place]) IgG antibody less than 0.3. Lyons IgG antibodies 1.1, AGRICULTURAL LOAN OFFICER 99. IgG antibodies, Scl 70, IgG antibodies 0.7, anti-dsDNA antibodies 1.8, anti-U1RNP IgG quantitative 189.0, and anticentromere IgG antibodies less than 0.04. 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 She will be continued on steroids. We will discontinue IV fluids. We will obtain the Hematology consultation since the patient is thrombocytopenic and it shows signs of hemolytic anemia. Peripheral blood smear is ordered. This will be reviewed. Echocardiogram was done and it did not show any pathology. We will try to get lead electrician into the hospital, but if we can not get one, we will send her out since she has an appointment with one of them on the 03 of January. Job ID: [id number]
[2018-12-29 15:13] LABS: A1 Antitrypsin Phenotype Inter MS (.); Alpha-1-Antitrypsin 120 mg/dL (90-200)
--- NOTE | 2018-12-29 17:07 | PRG ---
DATE OF SERVICE: 12/29/2018 SUBJECTIVE: This is a 33-year-old female, hospitalized with sepsis, hypertension, and elevation of liver function tests. The patient has negative blood cultures . Chest x-ray showed bilateral interstitial infiltrates. Her hepatitis markers were negative. She has done a remarkably improved over the last 48 hours. She appears very comfortable. No abdominal pain. No nausea or vomiting. She is tolerating diet. PHYSICAL EXAMINATION: GENERAL: Appears very comfortable. VITAL SIGNS: Stable. Afebrile. Pulse is 97, blood pressure 113/77. HEENT: She is icteric. CARDIOVASCULAR AND LUNGS: Within normal limits. ABDOMEN: Soft. No organomegaly. No tenderness. LABORATORY DATA: Show CBC; WBC 8400, bandemia 12%, hemoglobin 12, hematocrit 36.9, platelet count is coming up to 58,000, most likely from what appears to be DIC with consumption coagulopathy. Her liver function tests are really fluctuating. They are trending down. Today, the bilirubin has come down to 2.8, but transaminases are high. AST is 399, ALT 366, alkaline phosphatase 180, albumin 2.1. Her MARIUSZ screen came back positive . RECOMMENDATIONS: 1. Continue IV steroids. 2. Symptomatic treatment. 3. Follow up LFTs. Job ID: [id number] [facility]
--- NOTE | 2018-12-29 17:22 | PRG ---
DATE OF SERVICE: 12/29/2018 SUBJECTIVE: Ms. Pan says she is feeling well. OBJECTIVE: VITAL SIGNS: She is afebrile. Heart rate 87, respiratory rate 18, oximetry is 95 to 98 on room air, and blood pressure 105/70. LUNGS: Clear. HEART: Regular rhythm. ABDOMEN: Nontender. DIAGNOSTIC STUDIES: Her echocardiogram is essentially normal. LABORATORY DATA: White count 8.4, hemoglobin 12.0, and platelets 58,000. Sodium 133, potassium 3.8, chloride 105, bicarb 25, BUN 11, and creatinine 0.48. Protime was 17, PTT was 38. Lupus anticoagulant is pending. IMPRESSION: Febrile illness with abdominal discomfort and elevated liver enzymes with hyperbilirubinemia. Her liver enzymes actually went back up today. There is no evidence that this is related to gallstones or gallbladder, biliary tree, or any abdominal pathology by CT. Her abdominal tenderness has improved significantly, although she still has a significant liver enzyme elevation and hypoalbuminemia as well as mild acquired coagulopathy. Lab works looking like this all may be a collagen vascular disease presentation. She is on IV steroids at this point in time, although she has not been given the dose as one would give with severe lupus flare with renal failure, etc. Input from Rheumatology would be helpful. The student life dean to have privileges at the hospital. She is stable to move out of Critical Care Unit. She was instructed in [place] to get a MedicAlert bracelet and says that she has adrenal insufficiency. It is interesting to note that she does not have a high ACTH level and also has 1/2 TSHs that are low making me wonder if she does not have an empty sella/panhypopituitarism. This can be worked up with Endocrinology's physician's assistant as an outpatient. She probably does need a T4, T3, T3 uptake, etc. We will sign off. Job ID: [id number]
[2018-12-29 22:09] LABS: HBV as IU/mL HBV DNA not detected IU/mL (.)
[2018-12-30 05:14] VITALS: BMI 38.7
[2018-12-30] MEDS: methylPREDNISolone Sod Succ 40 MG VIAL IVP SCH (05:33)
[2018-12-30 06:47] LABS: ALT (SGPT) 431 U/L (8-55); AST (SGOT) 267 U/L (5-34); Albumin 2.2 g/dL (3.5-5.0); Alkaline Phosphatase 220 U/L (40-150); Anion Gap 7 mmol/L (10-20); BUN (Urea Nitrogen) 16 mg/dL (7.0-18.7); Bilirubin, Total 1.7 mg/dL (0.2-1.2); Calc. Creatinine Clearance 298 mL/min (70-130); Calcium 7.7 mg/dL (7.8-10.44); Carbon Dioxide 26 mmol/L (22-29); Chloride 105 mmol/L (98-107); Estimated GFR-MDRD Greater than 90; Globulin 2.2 g/dL (2.4-3.5); Glucose 138 mg/dL (70-105); Potassium 4.1 mmol/L (3.5-5.1); Protein, Total 4.4 g/dL (6.0-8.3); Sodium 134 mmol/L (136-145)
[2018-12-30 07:28] LABS: Band 6 % (5-11); Hemoglobin 11.2 g/dL (12.0-16.0); Lymphocytes 23 % (21-51); MDiff Complete? YES; Mean Corpuscular HGB CONC 33.6 g/dL (32.0-36.0); Mean Corpuscular Hemoglobin 28.5 pg (27.0-31.0); Mean Corpuscular Volume 84.9 fL (78.0-98.0); Mean Platelet Volume 9.2 fL (7.4-10.4); Monocytes 7 % (0-10); Neutrophil 61 % (42-75); Platelet Count 82 thou/uL (130-400); Platelet Morphology Comment Appears Decreased; RBC Distribution Width 13.6 % (11.5-14.5); RBC Morphology Normal; Reactive Lymphocytes 3 % (0-10); Red Blood Cell (RBC) Count 3.93 mill/uL (4.20-5.40); White Blood Cell (WBC) Count 7.9 thou/uL (4.8-10.8)
[2018-12-30] MEDS: traMADol HCl 50 MG TAB PO PRN (09:53)
[2018-12-30] MEDS ORDERED: predniSONE 20 MG TAB PO SCH (11:30)
[2018-12-30 12:38] LABS: PTT - Undiluted 38.8 SEC (22.9-36.1); PTT 1:1 Mix 33.9 SEC
[2018-12-30 12:44] LABS: Factor IX Test 84.7 % ACTIVE (56-149); Factor VIII Test 205.5 % ACTIVE (56-157)
[2018-12-30 13:38] LABS: Free T4 (Free Thyroxine) 0.6 ng/dL (0.70-1.48)
[2018-12-30 13:39] LABS: Luteinizing Hormone 1.3 mIU/mL (See Ranges)
[2018-12-30 14:09] LABS: PT 1:1 37C-90 min. Incubation 14.4 SEC; PTT 1:1 37C/90 MIN Incubation 38.2 SEC
[2018-12-30 14:10] LABS: DRVVT Confirm 43.8; DRVVT Ratio 0.8 Ratio (1.2 or Less); DRVVT Screen 33.1 SEC (20-50); HEX PHOS LA Tube 1 73.4 SEC; HEX PHOS LA Tube 2 59.5 SEC; Hexagonal Phospholipid Neut 13.9 SEC (0-8.0)
--- NOTE | 2018-12-30 14:59 | PRG ---
DATE OF SERVICE: 12/30/2018 SUBJECTIVE: The patient is seen and examined at the bedside. She is moved to the medical floor. She is doing well. She is eating, not having any abdominal discomfort. OBJECTIVE: VITAL SIGNS: Blood pressure is 110/73, pulse is 79, temperature is 98.1, respirations are 18, O2 saturation is 96% on room air. HEENT: Head is atraumatic and normocephalic. Eyes are PERRLA. Sclerae are nonicteric. Oral mucosa is moist. NECK: Supple. LUNGS: Clear. HEART: S1 and S2 normal. No S3. No S4. ABDOMEN: Soft, obese, nontender. EXTREMITIES: No clubbing, cyanosis, or edema. NEUROLOGICAL: She follows my commands. She moves all 4 extremities. LABORATORY DATA: Labs showed white count of 7.9, hemoglobin 11.2, hematocrit 33.3, platelet count is 82,000. Sodium of 134, potassium 4.1, chloride 105, CO2 of 26, BUN 16, creatinine 0.48, glucose 138, total bilirubin 1.7, AST 267, ALT 431, alkaline phosphatase 220, total protein 4.4. 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 We are going to switch her from IV Solu-Medrol to prednisone 60 mg once a day. Since her ACTH was low, we will check her FSH, LH, free T3 and free T4 for possible empty sella turcica syndrome and panhypopituitarism as suggested by Dr. Butterfield. She is supposed to have Rheumatology appointment on the January 03, and since they do not come to the hospital for consultations, we are going to send her out there. Most likely, she will be discharged tomorrow, and clinically, she is stable. Job ID: [id number]
[2018-12-30] MEDS ORDERED: Levothyroxine Sodium 100 MCG TAB PO SCH (15:00)
--- NOTE | 2018-12-30 17:26 | CT ---
CT OF THE BRAIN WITHOUT CONTRAST: COMPARISON: None. HISTORY: Hypopituitarism. TECHNIQUE: Multiple contiguous axial images were obtained in a CT of the brain without contrast. Sagittal and c oronal reformats were performed. FINDINGS: The brain is normal in morphology and attenuation without focal lesions or confluent areas of infarct ion. There is no evidence of hydrocephalus, intracranial hemorrhage, or extraaxial fluid collection. The corpus callosum, pituitary, and craniocervical junction are unremarkable. The calvarium and overlying soft tissues are unremarkable. The visualized paranasal sinuses and mast oid air cells are well aerated. IMPRESSION: No significant intracranial abnormality. There is a normal-appearing pituitary gland. POS: C
--- NOTE | 2018-12-30 18:11 | PRG ---
DATE OF SERVICE: 12/30/2018 SUBJECTIVE: This is a 33-year-old female, hospitalized over the weekend with sepsis, hypertension, abnormal LFTs. She was also having abdominal pain. The patient had positive MARIUSZ. Her hepatitis markers were negative. She had IV steroids because of the low cortisol level. The patient is making slow but steady progress. She had no abdominal pain. No nausea or vomiting. She had good appetite, is eating very well. She offers no complaints. PHYSICAL EXAMINATION: VITAL SIGNS: Afebrile. Pulse is 79, and blood pressure 110/73. CARDIOVASCULAR: First and second heart sounds normal. LUNGS: Clear to auscultation. ABDOMEN: Soft. Abdomen is nondistended. Abdomen is nontender. No organomegaly or masses. LABORATORY DATA: From today, the chemistry panel shows normal lytes. Potassium is 4.1, BUN is 16, creatinine is 0.48, calcium 7.7 and bilirubin is now coming down to 1.7. AST, ALT, trending down to 267 and 431 respectively. The albumin is 2.2. IMPRESSION: 1. Autoimmune hepatitis, possible lupus that sounds of unspecified connective tissue disorder. 2. Hypocortisolism, on IV steroids. RECOMMENDATIONS: She is making steady but slow progress, I would probably recommend switching over the IV steroids to prednisone 60 mg once a day. I believe she had an appointment to see Rheumatology as outpatient. She has been on prednisone taper and we will follow up with the LFTs. Job ID: [id number]
[2018-12-31 05:54] LABS: Hypochromia SLIGHT = 6-15 cells (100X) (0-5/hpf); Lymphocytes 17 % (21-51); MDiff Complete? YES; Mean Corpuscular HGB CONC 33.3 g/dL (32.0-36.0); Mean Corpuscular Hemoglobin 28.3 pg (27.0-31.0); Mean Corpuscular Volume 85.1 fL (78.0-98.0); Mean Platelet Volume 9.5 fL (7.4-10.4); Monocytes 6 % (0-10); Neutrophil 77 % (42-75); Platelet Count 96 thou/uL (130-400); Platelet Morphology Comment Appears Decreased; RBC Distribution Width 13.3 % (11.5-14.5); Red Blood Cell (RBC) Count 3.52 mill/uL (4.20-5.40); White Blood Cell (WBC) Count 5.5 thou/uL (4.8-10.8)
[2018-12-31] MEDS ORDERED: Levothyroxine Sodium 100 MCG TAB PO SCH (06:00)
[2018-12-31 07:30] VITALS: BP 112/78; TEMP 98.4
[2018-12-31] MEDS ORDERED: predniSONE 20 MG TAB PO SCH (08:00)
--- NOTE | 2018-12-31 21:04 | DIS ---
DATE OF ADMISSION: 12/25/2018 DATE OF DISCHARGE: 12/31/2018 CONSULTANTS: 1. Dr. Tito Butterfield, Pulmonary/Critical Care. 2. Dr. Moore, Gastrointestinal Service. 3. Dr. Fermin Gamez, Infectious Disease Service. FINAL DIAGNOSES AT THE TIME OF DISCHARGE: 1. Most likely lupus or lupus-like syndrome. 2. Secondary hypothyroidism. 3. Acute adrenal crisis. 4. Autoimmune hepatitis. HOSPITAL COURSE: The patient was a 33-year-old female, who was admitted to the hospital with acute onset of fever and pain all over her body. Apparently, she was quite well until the day prior to this hospitalization when she started having some fever and pain all over her body, especially in her knees and her abdomen. She noticed some dysuria and some shortness of breath. There was no cough. Recently, she was sent to a document improvement specialist by her primary care physician and she had an appointment with Dr. Toro on the 03 of January. While in the emergency room, her temperature was 100.8, pulse was 130, blood pressure was 87/52. White count was up to 17.9, hemoglobin 15.4, hematocrit 46.9, 58% of bands. ABGs showed pH of 7.38, pCO2 of 32.1, PO2 of 90.7. Sodium of 130, potassium 4.6, chloride 100, CO2 of 23, BUN 27, creatinine 0.71. Lactic acid first measurement was 4.2, the next one was 2.6. AST was elevated at 497, ALT 575, alkaline phosphatase 153. C-reactive protein was up to 14.06. Urine showed specific gravity of 1.61, 3+ urobilinogen, otherwise it was negative. Urine drug screen was positive for opioids. Hepatitis A, B, and C acute panel was nonreactive. Chest x-ray showed bilateral increased opacification in both lower lobes, and also she had CT done for possible dissection of aorta, which was negative, but it showed bilateral axillary lymphadenopathy. Abdominal ultrasound showed unremarkable exam. The patient was originally admitted to the floor, then she was moved to the intensive care unit since she was hypotensive and tachycardic. She was treated as possible sepsis with broad-spectrum antibiotics, Zosyn and vancomycin and IV fluids. Her temperature was treated with antipyretics. The patient was seen by Dr. Butterfield for Pulmonary/Critical Care evaluation. He recommended to measure cortisol level, which came back at the level of 1. It was clear that the patient was in adrenal crisis, so ACTH level was measured and it came back at 1.2, so this was centrally mediated adrenal crisis. She improved with IV fluids and she was started on steroids. Diagnostic workup was done and it showed that she was positive for MARIUSZ. Quantitative test came back at 30.0, SSA was 70, SSB was less than 0.3, anti-Lyons antibodies were normal at 1.1, SLUDGE MILL OPERATOR IgG antibodies came back high at 99.0, anti-U1RNP IgG was 189, anticentromere IgG was less than 0.4. Beta-2 glycoprotein IgG antibodies were normal and anticardiolipin IgG antibodies came back normal too. C3 was low at 56 and C4 was 20.2, which was normal. Acute hepatitis panel came back normal. ANCA normal. Her third generation TSH came back at 0.69 with repeated came back at 0.1755. Free T3 was low at 1.1, and free T4 was low at 0.60. Evaluation for panhypopituitarism was done with FSH, which came back normal and LH was normal too. DHEA was normal at 44.1. Liver function tests were elevated and tap out operator was consulted. It was felt that this was most likely related to autoimmune process. She was switched to oral prednisone and she did well. Her general condition improved tremendously. 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 Her LDH came back high, which was suggestive of some hemolytic anemia, but her hemoglobin level was good and there was no any significant drop in the hemoglobin level. HIV-1 and 2 antigen and antibodies came back nonreactive, and urine antigen for Legionella pneumophila came back negative. Infectious Disease specialist, Dr. Gamez was consulted and he felt that this was not infectious process. Antibiotics were stopped. She is doing well. Blood pressure is 112/78, pulse is 68, respiratory rate 16, O2 saturation is 95% on room air. Her temperature is 98.4. The case was discussed with Dr. Baez, who was on-call for Dr. Toro, and she recommended to continue prednisone until she sees Dr. Toro, who is coming from vacation next Thursday, and that is the time when the patient has an appointment with him, which is in the next three days. The diet she is going to stay is regular. Activities as tolerated. MEDICATIONS: At the time of discharge; 1. Levothyroxine 100 mcg every morning. 2. Prednisone 60 mg every morning. 3. Alprazolam 0.25 mg p.r.n. as needed. FOLLOWUP: She is going to follow up with her primary physician in 1 week and she is supposed to see Dr. Toro on the 03 of January, which is in the next three days. Also, she will need to get pipe stress engineer referral from her primary doctor and see pipe stress engineer for her hormonal deficiencies. The CT scan of the brain did not show any problem with a pituitary gland, might get more testing with MRI on outpatient basis with her doctors. The time spent on this discharge is more than 30 minutes. Job ID: [id number]
--- NOTE | 2019-01-01 11:39 | EKG ---
Test Reason : Blood Pressure : / mmHG Vent. Rate : 098 BPM Atrial Rate : 098 BPM P-R Int : 130 ms QRS Dur : 070 ms QT Int : 346 ms P-R-T Axes : 025 -11 004 degrees QTc Int : 441 ms Normal sinus rhythm Normal ECG Confirmed by CECILLE CHUNG ([id number]), editorial manager PATRICIA MAGALLANES ([id number]) on 01/01/2019 11:39:39 AM Referred By: Confirmed By:CECILLE CHUNG
== END 2018-12-31 17:43 | disposition home or self-care (01) | DRG 644 ==
LOC: ERS 17:59 → T4-A 22:39 → CCU 12-26 09:03 → T4-A 12-29 13:51
PROVIDERS: ADMIT Internal Medicine; ATTEND Internal Medicine
DX: E27.2 Addisonian crisis (principal); E87.1 Hypo-osmolality and hyponatremia; D58.9 Hereditary hemolytic anemia, unspecified; E27.1 Primary adrenocortical insufficiency; K75.4 Autoimmune hepatitis; E83.51 Hypocalcemia; D64.9 Anemia, unspecified; D69.6 Thrombocytopenia, unspecified; E03.8 Other specified hypothyroidism; E66.9 Obesity, unspecified; Z68.38 Body mass index [BMI] 38.0-38.9, adult
CPT/HCPCS: 36415; 70450; 71045; 71275; 76705; 80053; 80074; 80202; 80306; 80307; 80500; 81003; 82024; 82088; 82103; 82104; 82533; 82550; 82553; 82627; 82805; 83001; 83002; 83036; 83605; 83615; 83690; 83735; 83880; 84145; 84305; 84439; 84443; 84481; 84484; 85007; 85025; 85027; 85049; 85060; 85240; 85250; 85300; 85362; 85379; 85384; 85598; 85610; 85611; 85613; 85730; 85732; 86038; 86140; 86146; 86147; 86160; 86225; 86235; 86256; 86850; 86900; 86901; 87040; 87086; 87389; 87517; 87899; 93005; 93306; 94640; 94760; 96361; 96365; 96367; 96375; J0131; J0456; J1650; J1720; J1885; J2270; J2543; J2920; J3370; J3411; J3490; J7050; J7512; J7620

== ENCOUNTER 2019-08-06 23:38 | Emergency (ER) | payer SELFPAY ==
[2019-08-07] MEDS ORDERED: diphenhydrAMINE 50 MG/ML VIAL ONE (00:03)
[2019-08-07] MEDS ORDERED: Metoclopramide HCl 10 MG/2 ML VIAL ONE (00:03)
[2019-08-07] MEDS ORDERED: Ketorolac Tromethamine 30 MG/ML VIAL ONE (01:33)
[2019-08-07] MEDS ORDERED: methylPREDNISolone Sod Succ/PF 125 MG/2 ML VIAL ONE (01:33)
--- NOTE | 2019-08-07 07:11 | CT ---
PRELIMINARY REPORT/[facility]/AFTER HOURS PROCEDURE CT HEAD WITHOUT INTRAVENOUS CONTRAST: CLINICAL HISTORY: Patient presents for evaluation of headache, nausea and vomiting. TECHNIQUE: Axial computed tomography images of the head/brain without intravenous contrast. COMPARISON: None provided. FINDINGS: BRAIN: No acute intraparenchymal hemorrhage. No mass lesion. No CT evidence for acute territorial inf arct. No midline shift or extra-axial collection. VENTRICLES: No hydrocephalus. ORBITS: The orbits are unremarkable. SINUSES AND MASTOIDS: The paranasal sinuses and mastoid air cells are clear. SOFT TISSUES: No significant facial or scalp soft tissue swelling evident. No radiopaque foreign body is seen. BONES: No acute skull fracture. IMPRESSION: No acute intracranial abnormality. ELECTRONICALLY SIGNED BY: Taylor Segura MD Aug 07, 2019 2:04:04 AM HAND WOODWORKING SANDER This report is intended for review by the ordering physician only, in accordance of law. If you recei ve this report in error, please call [facility] at [phone]. FINAL REPORT EMERGENT AFTER HOURS CT BRAIN: FINDINGS: I agree with the findings and impression given in the preliminary report per the [facility] phy sician. IMPRESSION: No evidence of acute intracranial abnormality. CODE QA
== END 2019-08-07 02:20 | disposition home or self-care (01) ==
LOC: ERS 23:38
DX: R51 Headache (principal)
CPT/HCPCS: 70450; 96365; 96375; J1200; J1885; J2765; J2930

== ENCOUNTER 2023-04-15 12:58 | Emergency (ER) | payer SELFPAY ==
[~2023-04-15 12:58] MED LIST: Iopamidol-370 76% 500 ML MDV (1 ML CHARGE) ONE
[2023-04-15 13:21] LABS: #Monocytes 0.5 thou/uL (0.11-0.59); #Neutrophils 2.9 thou/uL (1.40-6.50); %Eosinophils 0.2 % (0.0-10.0); %Lymphocytes 16.6 % (21.0-51.0); %Monocytes 11.4 % (0.0-10.0); %Neutrophils 71.6 % (42.0-75.0); Hematocrit 37.6 % (36.0-47.0); Hemoglobin 12.4 g/dL (12.0-16.0); Mean Corpuscular Hemoglobin 30.9 pg (27.0-31.0); Mean Corpuscular Volume 93.8 fl (78.0-98.0); Mean Platelet Volume 8.8 fL (7.4-10.4); Platelet Count 237 10x3/uL (130-400); RBC Distribution Width 12.9 % (11.5-14.5); Red Blood Cell (RBC) Count 4.01 mill/uL (4.20-5.40)
[2023-04-15 13:35] LABS: BHCG - Serum Negative (NEGATIVE); Pregs Control Background? CLEAR/WHITE (CLR/WHITE); Pregs Control Bar Appear? YES (CONTROL BAR)
[2023-04-15 13:49] LABS: ALT (SGPT) 20 U/L (8-55); AST (SGOT) 21 U/L (5-34); Albumin 4.7 g/dL (3.5-5.0); Alkaline Phosphatase 49 U/L (40-110); Anion Gap 12 mmol/L (10-20); BUN (Urea Nitrogen) 11 mg/dL (7.0-18.7); Bilirubin, Total 0.3 mg/dL (0.2-1.2); Calc. Creatinine Clearance 0 mL/min (70-130); Calcium 9.5 mg/dL (7.8-10.44); Carbon Dioxide 24 mmol/L (22-29); Chloride 106 mmol/L (98-107); Estimated GFR 98; Globulin 2.6 g/dL (2.4-3.5); Glucose 104 mg/dL (70-105); Lipase 33 U/L (8-78); Potassium 4.2 mmol/L (3.5-5.1); Protein, Total 7.3 g/dL (6.0-8.3); Sodium 138 mmol/L (136-145)
[2023-04-15] MEDS ORDERED: Morphine 4 MG/ML VIAL ONE ×2 (15:00→15:57)
[2023-04-15] MEDS ORDERED: Ondansetron PF 4 MG/2 ML Vial ONE (15:00)
[2023-04-15] MEDS ORDERED: Ketorolac Tromethamine 30 MG/ML VIAL ONE (16:08)
== END 2023-04-15 17:36 | disposition home or self-care (01) ==
LOC: ERS 12:58
DX: K82.9 Disease of gallbladder, unspecified (principal)
CPT/HCPCS: 36415; 74177; 76705; 80053; 83690; 84703; 85025; 96374; 96375; 96376; J1885; J2270; J2405; Q9967

== ENCOUNTER 2023-12-28 06:26 | Emergency (ER) | payer SELFPAY ==
[2023-12-28] MEDS ORDERED: Ketorolac Tromethamine 30 MG (1 mL) VIAL ONE (07:11)
[2023-12-28] MEDS ORDERED: HYDROcodone/Acetaminophen 5/325 mg Tablet ONE (07:12)
== END 2023-12-28 08:01 | disposition home or self-care (01) ==
LOC: ERS 06:26
DX: M25.561 Pain in right knee (principal); L93.0 Discoid lupus erythematosus; I10 Essential (primary) hypertension
CPT/HCPCS: 96372; J1885

== ENCOUNTER 2024-03-23 12:44 | Emergency (ER) | payer SELFPAY ==
[2024-03-23] MEDS ORDERED: HYDROcodone/Acetaminophen 5/325 mg Tablet ONE (15:21)
[2024-03-23] MEDS ORDERED: Ketorolac Tromethamine 30 MG (1 mL) VIAL ONE (16:00)
[2024-03-23 16:40] LABS: #Basophils Less than 0.03 10x3/uL (0.0-0.2); #Eosinophils Less than 0.03 10x3/uL (0.0-0.7); %Eosinophils 0.2 % (0.0-10.0); %Lymphocytes 20.9 % (21.0-51.0); %Neutrophils 70.4 % (42.0-75.0); Hemoglobin 12.1 g/dL (12.0-16.0); Mean Corpuscular HGB CONC 32.7 g/dL (32.0-36.0); Mean Corpuscular Hemoglobin 30.6 pg (27.0-31.0); Mean Corpuscular Volume 93.7 fL (78.0-98.0); Mean Platelet Volume 8.6 fL (7.4-10.4); Platelet Count 272 10x3/uL (130-400); Red Blood Cell (RBC) Count 3.95 mill/uL (4.20-5.40)
[2024-03-23 16:58] LABS: ALT (SGPT) 39 U/L (8-55); AST (SGOT) 35 U/L (5-34); Albumin 4.2 g/dL (3.5-5.0); Alkaline Phosphatase 55 U/L (40-110); Anion Gap 11 mmol/L (10-20); BUN (Urea Nitrogen) 18 mg/dL (7.0-18.7); Bilirubin, Total 0.5 mg/dL (0.2-1.2); Calc. Creatinine Clearance 0 mL/min (70-130); Calcium 9.3 mg/dL (7.8-10.44); Carbon Dioxide 23 mmol/L (22-29); Chloride 109 mmol/L (98-107); Estimated GFR 109; Globulin 2.8 g/dL (2.4-3.5); Glucose 98 mg/dL (70-105); Potassium 4.4 mmol/L (3.5-5.1); Sodium 139 mmol/L (136-145)
[2024-03-23 17:00] LABS: Troponin I Less than 0.010 ng/mL (< 0.028)
[2024-03-23 18:42] LABS: BHCG - Serum Negative (NEGATIVE); Pregs Control Background? CLEAR/WHITE (CLR/WHITE); Pregs Control Bar Appear? YES (CONTROL BAR)
== END 2024-03-23 20:02 | disposition home or self-care (01) ==
LOC: ERS 12:44
DX: M32.9 Systemic lupus erythematosus, unspecified (principal); M79.604 Pain in right leg; I10 Essential (primary) hypertension
CPT/HCPCS: 36415; 71045; 71275; 80053; 83605; 83880; 84145; 84484; 84703; 85025; 85379; 93970; 96372; J1885; Q9967